=== PATIENT | female | born 1940 | race Caucasian/White ===

== ENCOUNTER 2018-03-15 16:50 | Emergency (ER) | payer MEDICARE, OTHER ==
[~2018-03-15] VITALS: Ht 167.6 cm; Wt 73.9 kg
[~2018-03-15 16:50] MED LIST: DILTIAZEM HCL90 MG PO; FLUOXETINE HCL20 M1 PO; FLUOXETINE HCL20 MG; HYDROCHLOROT PO; HYDROCHLOROTHIA25 MG PO; LEVOTHYROXINE PO; MELOXICAM15 MG OD; NORCO 7.5-3251 EACH PO; PANTOPRAZOLE SO40 MG PO
[2018-03-15] MEDS ORDERED: NAMENDA10 MG PO (17:41)
[2018-03-15] MEDS ORDERED: CYMBALTA30 MG PO (17:41)
--- NOTE | 2018-03-15 19:39 | Diagnostic Imaging Report ---
EXAMINATION: Head CT without contrast. HISTORY:Fall. COMPARISON:None. TECHNIQUE: Multidetector axial images were obtained from the foramen magnum to the vertex without contrast. The images were reconstructed using brain and bone algorithms. Thin section brain images were reformatted into coronal and sagittal planes. Dose modulation, iterative reconstruction, and/or weight based adjustment of the mA/kV was utilized to reduce the radiation dose to as low as reasonably achievable. Intravenous contrast: None IMAGE QUALITY: Acceptable. FINDINGS: Skull/scalp: No lytic or blastic. lesions. No surgical changes. Parenchyma: Nonspecific few, scattered supratentorial white matter hypodensity are likely related to small vessel ischemic changes. No acute hemorrhage, mass or acute major vascular territorial infarct. Arteries: No density suggestive of thrombosis. Dural sinuses: No abnormal density suggestive of thrombosis. Ventricles: No hydrocephalus or displacement. Extra-axial spaces: No abnormal density. Brain volume: Mild generalized age-related cerebral volume loss. Craniocervical junction: No mass, Chiari malformation, or basilar invagination. Sella: No mass. Paranasal/mastoid sinuses: Imaged portions unremarkable. IMPRESSION: 1. No acute intracranial abnormality. 2. Mild generalized cerebral volume loss and mild supratentorial white matter microvascular ischemic changes. Signed by: Dr. Kathryn Saxena M.D. on 03/15/2018 7:36 PM
--- NOTE | 2018-03-15 19:45 | Diagnostic Imaging Report ---
History: Comparison studies: None Technique: Axial images were obtained through the cervical region.. Coronal and sagittal images reconstructed from the axial data. Dose modulation, iterative reconstruction, and/or weight based adjustment of the mA/kV was utilized to reduce the radiation dose to as low as reasonably achievable. Intravenous contrast: None Findings: Fractures: None. Soft tissue injuries: None. Atlantoaxial articulation: Intact. Alignment: Loss of normal cervical lordosis is either positional or due to muscle spasm. No scoliosis. Cervicomedullary junction: No abnormalities. The foramen magnum is patent. Soft tissues: No abnormalities. Vertebrae: Nonspecific 5 mm lytic lesion in C4 vertebral body along the inferior endplate. No fractures, infection or neoplasm. Degenerative changes: Moderate degenerative changes in the anterior atlantodental joint. C4-C5: Mild right foraminal stenosis due to uncovertebral arthrosis. C5-C6: Mild degenerative disc disease. Mild bilateral foraminal stenosis due to facet and uncovertebral arthrosis. C6-C7: Mild degenerative disc disease. Moderate right and mild left foraminal stenosis due to facet and uncovertebral arthrosis. IMPRESSION: 1. No acute cervical spine fracture or dislocation. Loss of normal cervical lordosis is either positional or due to muscle spasm. 2. Ligament, spinal cord and or vascular abnormalities cannot be excluded on the basis of this examination. 3. Mild cervical spondylosis as detailed above. Signed by: Dr. Kathryn Saxena M.D. on 03/15/2018 7:41 PM
--- NOTE | 2018-03-15 19:48 | Diagnostic Imaging Report ---
History:Fall. Comparison studies: None Technique: Axial images were obtained through the maxillofacial region. Coronal and sagittal images reconstructed from the axial data. Dose modulation, iterative reconstruction, and/or weight based adjustment of the mA/kV was utilized to reduce the radiation dose to as low as reasonably achievable. Intravenous contrast: None Findings: Soft tissues: No abnormalities. Bones: No fractures or bony abnormalities. Orbits: Globes: Intact Extra or intraconal abnormalities: None. Paranasal sinuses: Mild mucosal thickening in bilateral maxillary sinuses IMPRESSION: No acute abnormality. Signed by: Dr. Kathryn Saxena M.D. on 03/15/2018 7:45 PM
== END 2018-03-15 21:18 | disposition home or self-care (01) ==
LOC: ER 16:50
DX: S01.01XA Laceration without foreign body of scalp, initial encounter (principal); S01.511A Laceration without foreign body of lip, initial encounter; S00.81XA Abrasion of other part of head, initial encounter; W10.8XXA Fall (on) (from) other stairs and steps, initial encounter; Y92.007 Garden or yard of unspecified non-institutional (private) residence as the place of occurrence of the external cause; I10 Essential (primary) hypertension; E03.9 Hypothyroidism, unspecified; K21.9 Gastro-esophageal reflux disease without esophagitis
CPT/HCPCS: 70450; 70486; 72125; 99283

== ENCOUNTER → 2018-10-09 | Outpatient (CLI) | payer MEDICARE, OTHER ==
[~2018-10-09] MED LIST changes: +CYMBALTA30 MG PO; +DIATRIZOATE MEGL/DIATRIZOA SOD 30 ML BTL PO ONE; +NAMENDA10 MG PO
[2018-10-09 11:27] LABS: CREATININE, SERUM 1.41 mg/dL (0.57-1.11)
--- NOTE | 2018-10-09 13:34 | Diagnostic Imaging Report ---
EXAM: CT Abdomen and Pelvis WITHOUT intravenous contrast INDICATION: Right lower quadrant pain COMPARISON: None. TECHNIQUE: Abdomen and pelvis were scanned utilizing a multidetector helical scanner from the lung base to the pubic symphysis without administration of IV contrast. Coronal and sagittal reformations were obtained. IV CONTRAST: None ORAL CONTRAST: Gastrografin COMPLICATIONS: None RADIATION DOSE: Total DLP: 660.4 mGy*cm Dose modulation, iterative reconstruction, and/or weight based adjustment of the mA/kV was utilized to reduce the radiation dose to as low as reasonably achievable. FINDINGS: LOWER THORAX: Several small thin-walled cysts in the right lower lobe. Mild subsegmental atelectasis at the left lower lobe. No focal consolidation. HEPATOBILIARY: No focal hepatic lesions. Status post cholecystectomy. SPLEEN: No splenomegaly. PANCREAS: No focal masses or ductal dilatation. ADRENALS: No adrenal nodules. KIDNEYS/URETERS: Status post right nephrectomy. No hydronephrosis or renal calculi in the [place] left kidney. PELVIC ORGANS/BLADDER: Status post hysterectomy. PERITONEUM / RETROPERITONEUM: No free air or fluid. LYMPH NODES: No lymphadenopathy. VESSELS: Scattered atherosclerotic calcifications of the abdominal aorta and major branches. GI TRACT: Masslike wall thickening at the cecum. Normal appendix. No evidence of bowel obstruction. BONES AND SOFT TISSUES: No acute osseous injury. No suspicious lytic or blastic lesions. IMPRESSION: Masslike wall thickening at the cecum. Recommend colonoscopy and tissue sampling to assess for malignancy. Signed by: Koko Albarran MD on 10/09/2018 1:31 PM
== END ==
LOC: CT 10:28
PROVIDERS: ATTEND Surgery
DX: R10.11 Right upper quadrant pain (principal); R10.31 Right lower quadrant pain
CPT/HCPCS: 36415; 74176; 82565; 84520

== ENCOUNTER → 2018-10-20 | Day surgery (SDC) | payer MEDICARE, OTHER ==
[2018-10-19 12:05] LABS: BASOPHILS % 0.8 % (0.0-1.0); EOSINOPHILS # (AUTO) 0.2 (0.0-0.4); EOSINOPHILS % 4.7 % (0.0-6.0); HEMATOCRIT 41.5 % (34.2-44.1); HEMOGLOBIN 13.5 g/dL (12.0-16.0); LYMPHOCYTES # (AUTO) 1.5 (1.0-3.2); LYMPHOCYTES % 40.7 % (18.0-39.1); MEAN CORPUSCULAR HEMOGLOBIN 28.4 pg (28-32); MEAN CORPUSCULAR HGB CONC 32.5 g/dL (31-35); MEAN CORPUSCULAR VOLUME 87.2 fL (81-99); MONOCYTES # (AUTO) 0.4 (0.2-0.8); MONOCYTES % 11.5 % (4.4-11.3); NEUTROPHILS # (AUTO) 1.5 (2.1-6.9); PLATELET COUNT 128 x10e3/uL (140-360); RED BLOOD COUNT 4.76 x10e6/uL (3.6-5.1); RED CELL DISTRIBUTION WIDTH 12.1 % (11.7-14.4)
[~2018-10-20] MED LIST changes: -DIATRIZOATE MEGL/DIATRIZOA SOD 30 ML BTL PO ONE; +LIDOCAINE HCL 2% LOCAL INJ 5 ML SDV VIAL INJ ONE; +PROPOFOL IV EMULSION 10 MG/ML 20 ML VIAL ONE
--- OUTSIDE RECORDS SUMMARY | 2018-10-20 09:09 | XMS REPORT ---
Author Author [facility] Address Unknown Phone Unavailable Care Team Providers Care Inside Sales Advertising Executive Name Role Phone Suzie RIOS Unavailable Unavailable SWEETDaniele Unavailable Unavailable Problems This patient has no known problems. Allergies, Adverse Reactions, Alerts This patient has no known allergies or adverse reactions. Medications This patient has no known medications. Results Test Description Test Time Test Comments Text Results Atomic Results Result Comments CT ABDOMEN/PELVIS WO 2018-10-09 13:24:00 [facility] [address] [address] Patient Name: LEX WEBB MR #: [id number] : 1940 Age/Sex: 78/F Req #: [id number] Adm Physician: Ordered by: MORENA RIOS MD Report #: [id number] Location: CT Room/Bed: Procedure: [id number] CT/CT ABDOMEN/PELVIS WO Exam Date: 10/09/18 Exam Time: 1207 REPORT STATUS: Signed EXAM: CT Abdomen and Pelvis WITHOUT intravenous cont rast INDICATION: Right lower quadrant pain COMPARISON: None. TECHNIQUE: Abdomen and pelvis were scanned utilizing a multidetector helical scanner from the lung base to the pubic symphysis without administration of IV contrast. Coronal and sagittal reformations were obtained. IV CONTRAST: None ORAL CONTRAST: Gastrografin COMPLICATIONS: None RADIATION DOSE: Total DLP: 660.4 mGy*cm Dose modulation, iterative reconstruction, and/or weight based adjustment of the mA/kV was utilized to reduce the radiation dose to as low as reasonably achievable. FINDINGS: LOWER THORAX: Several small thin-walled cysts in the right lower lobe. Mild subsegmental atelectasis at the left lower lobe. No focal consolidation. HEPATOBILIARY: No focal hepatic lesions. Status post cholecystectomy. SPLEEN: No splenomegaly. PANCREAS: No focal masses or ductal dilatation. ADRENALS: No adrenal nodules. KIDNEYS/URETERS: Status post right nephrectomy. No hydronephrosis or renal calculi in the [place] left kidney. PELVIC ORGANS/BLADDER: Status post hysterectomy. PERITONEUM / RETROPERITONEUM: No free air or fluid. LYMPH NODES: No lymphadenopathy. VESSELS: Scattered atherosclerotic calcifications of the abdominal aorta and major branches. GI TRACT: Masslike wall thickening at the cecum. Normal appendix. No evidence of bowel obstruction. BONES AND SOFT TISSUES: No acute osseous injury. No suspicious lytic or blastic lesions. IMPRESSION: Masslike wall thickening at the cecum. Recommend colonoscopy and tissue sampling to assess for malignancy. Signed by: Ronal Shah MD on 10/09/2018 1:31 PM Dictated By: RONAL SHAH MD 1331 Transcribed By: BRYAN on 10/09/18 1331 COPY TO: MORENA RIOS [facility] 2018-03-15 19:41:00 [address] [address] Patient Name: LEX WEBB MR #: [id number] : 1940 Age/Sex: 77/F Req #: [id number] Adm Physician: Ordered by: CHRISTY GREGORIO MD Report #: [id number] Location: Room/Bed: Procedure: CT/CT MAXIO FAC/PARANAS WO Exam Date: 03/15/18 Exam Time: 1800 REPORT STATUS: Signed History:Fall. Comparison studies: None Tech nique: Axial images were obtained through the maxillofacial region. Coronal and sagittal images reconstructed from the axial data. Dose modulation, iterative reconstruction, and/or weight based adjustment of the mA/kV was utilized to reduce the radiation dose to as low as reasonably achievable. Intravenous contrast: None Findings: Soft tissues: No abnormalities. Bones: No fractures or bony abnormalities. Orbits: Globes: Intact Extra or intraconal abnormalities: None. Paranasal sinuses: Mild mucosal thickening in bilateral maxillary sinuses IMPR ESSION: No acute abnormality. Signed by: Dr. Kathryn Dunn M.D. on 03/15/2018 7:45 PM Dictated By: KATHRYN DUNN MD 44 Transcribed By: BRYAN on 03/15/181944 COPY TO: CHRISTY GREGORIO MD CT CERVICAL SPINE WO 2018-03-15 19:36:00 [address] [place] [address] Patient Name: LEX WEBB MR #: [id number] : 1940 Age/Sex: 77/F Req #: [id number] Adm Physician: Ordered by: CHRISTY GREGORIO MD Report #: [id number] Location: ER Room/Bed: Procedure: CT/CT CERVICAL SPINE WO Exam Date: 03/15/18 Exam Time: 1800 REPORT STATUS: Signed History: Comparison studies: None Technique: Axial images were obtained through the cervical region.. Coronal and sagittal images reconstructed from the axial data. Dose modulation, iterative reconstruction, and/or weight based adjustment of the mA/kV was utilized to reduce the radiation dose to as low as reasonably achievable. Intravenous contrast: None Findings: Fractures: None. Soft tissue injuries: None. Atlantoaxial articulation: Intact. Alignment: Loss of normal cervical lordosis is either positional or due to muscle spasm. No scoliosis. Cervicomedullary junction: No abnormalities. The foramen magnum is patent. Soft tissues: No abnormalities. Vertebrae: Nonspecific 5 mm lytic lesion in C4 vertebral body along the inferior endplate. No fractures, infection or neoplasm. Degenerative changes: Moderate degenerative changes in the anterior atlantodental joint. C4-C5: Mild right foraminal stenosis due to uncovertebral arthrosis. C5-C6: Mild degenerative disc disease. Mild bilateral foraminal stenosis due to facet and uncovertebral arthrosis. C6-C7: Mild degenerative disc disease. Moderate right and mild left foraminal stenosis due to facet and uncovertebral arthrosis. IMPRESSION: 1. No acute cervical spine fracture or dislocation. Loss of normal cervical lordosis is either positional or due to muscle spasm. 2. Ligament, spinal cord and or vascular abnormalities cannot be excluded on the basis of this examination. 3. Mild cervical spondylosis as detailed above. Signed by: Dr. Kathryn Dunn M.D. on 03/15/2018 7:41 PM Dic tated By: KATHRYN DUNN MD 40 Transcribed By: BRYAN on 03/15/181940 COPY TO: CHRISTY GREGORIO MD CT BRAIN WO 2018-03-15 19:31:00 [address] [place] [address] Patient Name: LEX WEBB MR #: [id number] : 1940 Age/Sex: 77/F Req #: [id number] [facility] Physician: Ordered by: CHRISTY GREGORIO MD Report #: [id number] Location: Room/Bed: Procedure: [id number] CT/CT BRAIN WO Exam Date: 03/15/18 Exam Time: 1800 REPORT STATUS: Signed EXAMINATION: Head CT without contrast. HISTORY:Fall. COMPARISON:None. TECHNIQUE: Multidetector axial images were obtained from the foramen magnum to the vertex without contrast. The images were reconstructed using brain and bone algorithms. Thin section brain images were reformatted into coronal and sagittal planes. Dose modulation, iterative reconstruction, and/or weight based adjustment of the mA/kV was utilized to reduce the radiation dose to as low as reasonably achievable. Intravenous contrast: None IMAGE QUALITY: Acceptable. FINDINGS: Skull/scalp: No lytic or blastic. lesions. No surgical changes. Parenchyma: Nonspecific few, scattered supratentorial white matter hypodensity are likely related to small vessel ischemic changes. No acute hemorrhage, mass or acute major vascular territorial infarct. Arteries: No density suggestive of thrombosis. Dural sinuses: No abnormal density suggestive of thrombosis. Ventricles: No hydrocephalus or displacement. Extra- axial spaces: No abnormal density. Brain volume: Mild generalized age- related cerebral volume loss. Craniocervical junction: No mass, Chiari malformation, or basilar invagination. Sella: No mass. Paranasal/mastoid sinuses: Imaged portions unremarkable. IMPRESSION: 1. No acute intracranial abnormality. 2. Mild generalized cerebral volume loss and mild supratentorial white matter microvascular ischemic changes. Signed by: Dr. Kathryn Dunn M.D. on 03/15/2018 7:36 PM Dictated By: KATHRYN DUNN MD 35 Transcribed By: BRYAN on 03/15/181935 COPY TO: CHRISTY GREGORIO MD
[2018-10-20 13:10] VITALS: BP 116/65
== END | disposition home or self-care (01) ==
LOC: OR 08:59
PROVIDERS: ATTEND Surgery
DX: R10.31 Right lower quadrant pain (principal); K64.5 Perianal venous thrombosis; D64.9 Anemia, unspecified; I10 Essential (primary) hypertension; F32.9 Major depressive disorder, single episode, unspecified; Z01.810 Encounter for preprocedural cardiovascular examination; Z01.812 Encounter for preprocedural laboratory examination; Z90.49 Acquired absence of other specified parts of digestive tract; Z90.5 Acquired absence of kidney; Z85.528 Personal history of other malignant neoplasm of kidney; Z86.711 Personal history of pulmonary embolism; Z86.718 Personal history of other venous thrombosis and embolism
CPT/HCPCS: 36415; 45378; 85025; 93005; J2001; J2704

== ENCOUNTER → 2018-12-07 | Outpatient (CLI) | payer MEDICARE, OTHER ==
[~2018-12-07] MED LIST changes: -LIDOCAINE HCL 2% LOCAL INJ 5 ML SDV VIAL INJ ONE; -PROPOFOL IV EMULSION 10 MG/ML 20 ML VIAL ONE
--- NOTE | 2018-12-07 11:33 | Diagnostic Imaging Report ---
Chest, 2 views, 12/07/2018. History: Renal neoplasm. Comparison: None available. Findings: The cardiomediastinal silhouette and pulmonary vasculature are within normal limits. There is minimal biapical pleural thickening. The lungs are clear without evidence of consolidation or pleural effusion. Old right rib fracture is noted. Degenerative changes are noted in the thoracic spine. There are no acute osseous or soft tissue abnormalities. Impression: No acute cardiopulmonary abnormality. Signed by: Ben Allen on 12/07/2018 11:30 AM
--- NOTE | 2018-12-07 11:37 | Diagnostic Imaging Report ---
Renal ultrasound, 12/07/2018. History: History of renal neoplasm. Post right nephrectomy. Discussion: Transverse and longitudinal images of the left kidney was obtained demonstrating normal renal size and echogenicity. There is no evidence of hydronephrosis, mass, or renal calculus. The left kidney measures 9.5 cm in length with renal cortex of 1.4 cm. The urinary bladder is unremarkable. Left ureteral jet is identified. Bladder volume measures 67.9 mL. There is no evidence of free fluid. IMPRESSION: Normal left kidney, post right nephrectomy. Signed by: Ben Allen on 12/07/2018 11:34 AM
== END ==
LOC: US 09:58
PROVIDERS: ATTEND Urology
DX: C64.9 Malignant neoplasm of unspecified kidney, except renal pelvis (principal)
CPT/HCPCS: 71046; 76770

== ENCOUNTER → 2019-06-04 | Outpatient (CLI) | payer MEDICARE, OTHER ==
--- NOTE | 2019-06-04 11:25 | Diagnostic Imaging Report ---
EXAMINATION: CHEST 2 VIEWS INDICATION: Renal malignancy COMPARISON: Chest radiograph 12/07/2018 FINDINGS: LINES/TUBES:None LUNGS:The lungs are hyperinflated. No focal consolidation or pulmonary edema. No radiographically apparent pulmonary nodules. PLEURA:No pleural effusion or pneumothorax. MEDIASTINUM:The cardiomediastinal silhouette appears unchanged in size and shape. Atherosclerotic calcifications of the thoracic aorta. BONES/SOFT TISSUES:No acute osseous injury. ABDOMEN:No free air under the diaphragm. IMPRESSION: Hyperinflated lungs. No focal pneumonia or pulmonary edema. No radiographically apparent pulmonary nodules. Signed by: Koko Albarran MD on 06/04/2019 11:22 AM
--- NOTE | 2019-06-04 11:26 | Diagnostic Imaging Report ---
EXAM: Renal Ultrasound INDICATION: ^MALIG NEOP OF RT KIDNEY COMPARISON: None TECHNIQUE: Transverse and longitudinal images of the kidneys and bladder were obtained. FINDINGS: Right Kidney: Status post right nephrectomy. No focal mass or fluid collection in the nephrectomy bed. Left Kidney: Length: 10.9 cm Appearance: Normal echogenicity. Collecting system: No hydronephrosis Stones: None Cyst/Mass: None Bladder: No mass or calculi. Left ureteral jet visualized. Prevoid volume estimate of 143 cc. IMPRESSION: Status post right nephrectomy. No left hydronephrosis or renal calculi. Signed by: Koko Albarran MD on 06/04/2019 11:23 AM
== END ==
LOC: US 10:21
PROVIDERS: ATTEND Urology
DX: C64.1 Malignant neoplasm of right kidney, except renal pelvis (principal)
CPT/HCPCS: 71046; 76770

== ENCOUNTER → 2019-12-05 | Outpatient (CLI) | payer MEDICARE, OTHER ==
--- NOTE | 2019-12-05 12:46 | Diagnostic Imaging Report ---
EXAMINATION: CHEST 2 VIEWS INDICATION: Renal malignancy COMPARISON: Chest radiograph 06/04/2019 FINDINGS: LINES/TUBES:None LUNGS:The lungs are hyperinflated. No focal consolidation or pulmonary edema. No radiographically apparent pulmonary nodules. PLEURA:No pleural effusion or pneumothorax. MEDIASTINUM:The cardiomediastinal silhouette appears unchanged in size and shape. Atherosclerotic calcifications of the thoracic aorta. BONES/SOFT TISSUES:No acute osseous injury. ABDOMEN:No free air under the diaphragm. IMPRESSION: Hyperinflated lungs. No focal pneumonia or pulmonary edema. No radiographically apparent pulmonary nodules. Signed by: Koko Albarran MD on 12/05/2019 12:42 PM
--- NOTE | 2019-12-05 14:37 | Diagnostic Imaging Report ---
EXAM: Renal Ultrasound INDICATION: ^MALIG NEOPLASM OF RT KIDNEY COMPARISON: None TECHNIQUE: Transverse and longitudinal images of the kidneys and bladder were obtained. FINDINGS: Right Kidney: Status post right nephrectomy. Left Kidney: Length: 9.3 cm Appearance: Normal echogenicity. Collecting system: No hydronephrosis Stones: None Cyst/Mass: None Bladder: No mass or calculi. Volume estimate of 16 cc. IMPRESSION: Status post right nephrectomy. No left hydronephrosis or renal calculi. Signed by: Koko Albarran MD on 12/05/2019 2:34 PM
== END ==
LOC: US 12:05
PROVIDERS: ATTEND Urology
DX: C64.1 Malignant neoplasm of right kidney, except renal pelvis (principal)
CPT/HCPCS: 71046; 76770

== ENCOUNTER → 2020-06-16 | Outpatient (CLI) | payer MEDICARE, OTHER | LOC: US 09:51 | PROVIDERS: ATTEND Urology | DX: C64.1 Malignant neoplasm of right kidney, except renal pelvis (principal) | CPT/HCPCS: 71046; 76770 ==